=== PATIENT | female | born 1960 | race Caucasian/White ===

== ENCOUNTER 2020-05-24 13:45 | Emergency (ER) | payer MEDICAID ==
[2020-05-24] MEDS ORDERED: TRELEGY ELLIPT1 EACH IH (14:03)
[2020-05-24] MEDS ORDERED: ALPRAZOLAM0.5 MG PO (14:03)
[2020-05-24] MEDS ORDERED: LISINOPRIL40 MG PO (14:04)
[2020-05-24] MEDS ORDERED: PROAIR HFA0.09 MG/AC IH (14:04)
[2020-05-24] MEDS ORDERED: ALBUTEROL2.5 MG/3 M IH (14:04)
[2020-05-24] MEDS ORDERED: DILTIAZEM HCL PO (14:04)
[2020-05-24] MEDS ORDERED: MAGNESIUM OXID400 MG PO (14:05)
[2020-05-24] MEDS ORDERED: FUROSEMIDE20 MG PO (14:05)
[2020-05-24] MEDS ORDERED: CLOPIDOGREL75 M2 PO (14:05)
[2020-05-24] MEDS ORDERED: ATORVASTATIN CA40 MG PO (14:06)
[2020-05-24 14:41] LABS: EOS # 0.1 (0.04-0.40); EOS % 2.5 % (1.0-5.0); HEMATOCRIT 40.2 % (37.0-47.0); HEMOGLOBIN 12.5 g/dL (12.5-16.0); LYMPH# 1.7 (1.50-4.00); MEAN CELL VOLUME 96 fl (78-100); MEAN CORPUSCULAR HEMOGLOBIN 30 pg (27-31); MEAN CORPUSCULAR HGB CONC 31 g/dL (33-37); MEAN PLATELET VOLUME 8.9 fl (7.4-10.4); MONO # 0.4 (0.20-0.80); NEU # 3.3 (1.40-6.50); PLATELET COUNT 272 K/mm3 (130-400); RED BLOOD COUNT 4.17 M/mm3 (4.10-5.30); RED CELL DISTRIBUTION WIDTH 13.7 % (11.5-14.5); WHITE BLOOD COUNT 5.6 K/mm3 (4.8-10.8)
[2020-05-24 14:49] LABS: ALBUMIN 3.7 g/dL (3.5-5.0)
[2020-05-24 14:50] LABS: POTASSIUM 4.4 mmol/L (3.5-5.1)
[2020-05-24 14:51] LABS: CALCIUM 8.9 mg/dL (8.3-10.5)
[2020-05-24 14:52] LABS: TOTAL PROTEIN 6.3 g/dL (6.4-8.3)
[2020-05-24 14:54] LABS: TOTAL BILIRUBIN 0.3 mg/dL (0.2-1.2)
[2020-05-24 15:25] VITALS: BP 143/98
== END 2020-05-24 15:24 | disposition home or self-care (01) ==
LOC: ED 13:45
PROVIDERS: Family Medicine
DX: R14.0 Abdominal distension (gaseous) (principal); R10.9 Unspecified abdominal pain; I11.0 Hypertensive heart disease with heart failure; I50.9 Heart failure, unspecified; I25.10 Atherosclerotic heart disease of native coronary artery without angina pectoris; J44.9 Chronic obstructive pulmonary disease, unspecified; F17.200 Nicotine dependence, unspecified, uncomplicated; Z95.5 Presence of coronary angioplasty implant and graft; Z88.0 Allergy status to penicillin; Z79.51 Long term (current) use of inhaled steroids; Z79.02 Long term (current) use of antithrombotics/antiplatelets

== ENCOUNTER 2020-08-10 22:40 | Emergency (ER) | payer MEDICAID ==
[~2020-08-10 22:40] MED LIST: ALBUTEROL2.5 MG/3 M IH; ALPRAZOLAM0.5 MG PO; ATORVASTATIN CA40 MG PO; CLOPIDOGREL75 M2 PO; DILTIAZEM HCL PO; FUROSEMIDE20 MG PO; LISINOPRIL40 MG PO; MAGNESIUM OXID400 MG PO; PROAIR HFA0.09 MG/AC IH; TRELEGY ELLIPT1 EACH IH
[2020-08-10 23:19] LABS: HEMATOCRIT 37.4 % (37.0-47.0); HEMOGLOBIN 11.9 g/dL (12.5-16.0); MEAN CELL VOLUME 95 fl (78-100); MEAN CORPUSCULAR HEMOGLOBIN 30 pg (27-31); MEAN CORPUSCULAR HGB CONC 32 g/dL (33-37); MEAN PLATELET VOLUME 8.9 fl (7.4-10.4); PLATELET COUNT 251 K/mm3 (130-400); RED BLOOD COUNT 3.92 M/mm3 (4.10-5.30); RED CELL DISTRIBUTION WIDTH 13.2 % (11.5-14.5); WHITE BLOOD COUNT 7.4 K/mm3 (4.8-10.8)
[2020-08-10 23:27] LABS: ALBUMIN 4.1 g/dL (3.5-5.0)
[2020-08-10 23:29] LABS: CALCIUM 9.1 mg/dL (8.3-10.5)
[2020-08-10 23:30] LABS: TOTAL PROTEIN 6.9 g/dL (6.4-8.3)
[2020-08-10 23:32] LABS: PARTIAL THROMBOPLASTIN TIME 23.6 SECONDS (21.0-32.0); TOTAL BILIRUBIN 0.2 mg/dL (0.2-1.2)
[2020-08-10 23:40] LABS: NEUTROPHILS 84 % (42-75)
[2020-08-10 23:41] LABS: LYMPHOCYTE 14 % (20-51); MONOCYTE 1 % (3-10)
[2020-08-10 23:42] LABS: PROTHROMBIN TIME 10.5 SECONDS (9.0-12.0)
[2020-08-11 00:52] VITALS: BP 122/65
== END 2020-08-11 00:52 | disposition home or self-care (01) ==
LOC: ED 22:40
PROVIDERS: Nurse Practitioner
DX: R07.9 Chest pain, unspecified (principal); I11.0 Hypertensive heart disease with heart failure; I25.2 Old myocardial infarction; J44.9 Chronic obstructive pulmonary disease, unspecified; I25.10 Atherosclerotic heart disease of native coronary artery without angina pectoris; K21.9 Gastro-esophageal reflux disease without esophagitis; F17.210 Nicotine dependence, cigarettes, uncomplicated; Z95.9 Presence of cardiac and vascular implant and graft, unspecified; Z88.0 Allergy status to penicillin; Z79.01 Long term (current) use of anticoagulants

== ENCOUNTER 2023-07-29 20:45 | Emergency (ER) | payer MEDICAID ==
[2023-07-29] MEDS ORDERED: WELLBUTRIN XL150 M2 PO (20:54)
[2023-07-29] MEDS ORDERED: TRAMADOL 50 MG TAB PO ×2 (20:54→23:43)
[2023-07-29] MEDS ORDERED: ISOSORBIDE30 MG PO (20:55)
[2023-07-29] MEDS ORDERED: LEVOCETIRIZINE D5 MG PO (20:55)
[2023-07-29] MEDS ORDERED: PANTOPRAZOLE SO40 MG PO (20:56)
[2023-07-29] MEDS ORDERED: AMIODARONE200 MG PO (20:56)
[2023-07-29 21:45] LABS: BASO # 0.01 K/mm3 (0.02-0.10); EOS # 0.23 K/mm3 (0.04-0.40); HEMATOCRIT 35.7 % (37.0-47.0); HEMOGLOBIN 11.4 g/dL (12.5-16.0); LYMPH# 1.89 K/mm3 (1.50-4.00); MEAN CELL VOLUME 99 fl (78-100); MEAN CORPUSCULAR HEMOGLOBIN 32 pg (27-31); MEAN CORPUSCULAR HGB CONC 32 g/dL (33-37); MEAN PLATELET VOLUME 8.8 fl (7.4-10.4); MONO # 0.36 K/mm3 (0.20-0.80); PLATELET COUNT 199 K/mm3 (130-400); RED CELL DISTRIBUTION WIDTH 13.1 % (11.5-14.5); WHITE BLOOD COUNT 5.8 K/mm3 (4.8-10.8)
[2023-07-29 21:56] LABS: URINE APPEARANCE CLEAR (CLEAR); URINE BILIRUBIN NEGATIVE (NEGATIVE); URINE BLOOD NEGATIVE (NEGATIVE); URINE COLOR YELLOW (YELLOW); URINE GLUCOSE NEGATIVE (NEGATIVE); URINE KETONE NEGATIVE (NEGATIVE); URINE LEUKOCYTE ESTERASE NEGATIVE (NEGATIVE); URINE NITRATE NEGATIVE (NEGATIVE); URINE PROTEIN(semi-quant) NEGATIVE (NEGATIVE); URINE WBC 0-1 /hpf (0-3)
[2023-07-29 21:57] LABS: CALCIUM 8.8 mg/dL (8.3-10.5)
[2023-07-29 21:59] LABS: TOTAL PROTEIN 6.6 g/dL (6.2-8.1)
[2023-07-29 22:00] LABS: TOTAL BILIRUBIN 0.4 mg/dL (0.2-1.2)
[2023-07-29] MEDS ORDERED: TIZANIDINE2 MG PO (23:43)
[2023-07-29] MEDS ORDERED: Home traMADol 50 MG #2 TAB/PACK PO ONE (23:45)
[2023-07-30] VITALS: BP 132/77
== END 2023-07-30 | disposition home or self-care (01) ==
LOC: ED 20:45
PROVIDERS: Family Medicine
DX: M54.50 Low back pain, unspecified (principal); E86.9 Volume depletion, unspecified; N28.9 Disorder of kidney and ureter, unspecified; K59.00 Constipation, unspecified; Z88.0 Allergy status to penicillin; Z87.891 Personal history of nicotine dependence